=== PATIENT | female | born 1955 | race Caucasian/White ===

== ENCOUNTER 2020-12-31 19:04 | Emergency (ER) | payer OTHER ==
[2020-12-31] MEDS ORDERED: Ketorolac 30 MG/ML SDV IM ONE (19:19)
--- NOTE | 2020-12-31 19:24 | EDM.PDOC ---
ED HPI GENERAL MEDICAL PROBLEM - General Chief Complaint: Lower Extremity Injury/Pain Stated Complaint: DOG RAN INTO LEFT KNEE Time Seen by Provider: 12/31/20 19:10 Source of Information: Reports: Patient, RN, RN Notes Reviewed History Limitations: Reports: No Limitations - History of Present Illness INITIAL COMMENTS - FREE TEXT/NARRATIVE: Santo is a 65 y/o female who presents to the ED via personal vehicle with complaints of left knee pain. The patient reports her dog ran into her left lateral knee approximately 30 minutes ago, causing a buckling of the joint. The rates the pain 10/10 to her left medial, superior knee. She attest to decreased range of motion to the joint as well as the inability to bear weight on the left extremity due to pain. She denies history of injury to the left knee. She denies loss of sensory function to the left lower extremity. She has taken no medications or performed any supportive cares for her pain. 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: Musculoskeletal History: Reports: None, Fracture Neurological History: Reports: None Psychiatric History: Reports: None Other Endocrine/Metabolic History: Hx of elevated glucose Hematologic History: Reports: None Immunologic History: Reports: None Oncologic (Cancer) History: Reports: None Dermatologic History: Reports: None - Infectious Disease History Infectious Disease History: Reports: Chicken Pox, Measles, Mumps - Past Surgical History Head Surgeries/Procedures: Reports: None HEENT Surgical History: Reports: Adenoidectomy, Cataract Surgery, Tonsillectomy Other HEENT Surgeries/Procedures: Ear stapedectomy x3 Cardiovascular Surgical History: Reports: None GI Surgical History: Reports: None Female Surgical History: Reports: Breast Biopsy, D&C Other Musculoskeletal Surgeries/Procedures:: Bunionectomy [address] Dr. Quesada. elbow surg x3 Social & Family History - Caffeine Use Caffeine Use: Reports: Coffee Caffeine Use Comment: 5 cups daily Review of Systems - Review of Systems Review Of Systems: Comprehensive ROS is negative, except as noted in HPI. ED EXAM, GENERAL - Physical Exam Exam: See Below Exam Limited By: No Limitations General Appearance: Alert, No Apparent Distress, Thin Eye Exam: Bilateral Eye: EOMI, Normal Inspection Ears: Normal External Exam, Hearing Grossly Normal Throat/Mouth: Normal Inspection, Normal Oropharynx, Normal Voice, No Airway Compromise Neck: Normal Inspection, Full Range of Motion Respiratory/Chest: No Respiratory Distress, Lungs Clear, Normal Breath Sounds, No Accessory Muscle Use, Chest Non-Tender. No: Crackles, Rales, Rhonchi, Wheezing Cardiovascular: Normal Peripheral Pulses, Regular Rate, Rhythm, No Edema, No Gallop, No JVD, No Murmur, No Rub Peripheral Pulses: 2+: Radial (L), Radial (R) GI/Abdominal: Normal Bowel Sounds, Soft, Non-Tender Extremities: No Pedal Edema, Normal Capillary Refill, Joint Swelling (To left anterior, medial knee), Leg Pain (To left anterior, medial superior knee), Limited Range of Motion (To left knee), Redness (Mild erythema to left anterior knee). No: Increased Warmth, Mottled, Pallor Neurological: Alert, Oriented, CN II-XII Intact, Normal Cognition, Normal Gait, Normal Reflexes, No Motor/Sensory Deficits Psychiatric: Normal Affect, Normal Mood Skin Exam: Warm, Dry, Intact, No Rash, Erythema (Mild erythema to left anterior knee). No: Ecchymosis, Jaundice, Pallor, Petechiae, Rash Course - Vital Signs Last Recorded V/S: Last Vital Signs Temp 97.8 F 12/31/20 19:16 Pulse 85 12/31/20 21:36 Resp 16 12/31/20 21:36 BP 118/73 12/31/20 21:36 Pulse Ox 93 L 12/31/20 21:36 - Orders/Labs/Meds Orders: Active Orders 24 hr Category Date Time Status DME for Discharge [COMM] Stat Oth 12/31/20 21:10 Ordered Meds: Medications Discontinued Medications Generic Name Dose Route Start Last Admin Trade Name Freq PRN Reason Stop Dose Admin Hydromorphone HCl 1 mg 12/31/20 20:25 12/31/20 20:31 Hydromorphone 1 Mg/Ml Syringe IM 12/31/20 20:26 1 mg ONETIME ONE Administration Ketorolac Tromethamine 30 mg 12/31/20 19:19 12/31/20 19:33 Ketorolac 30 Mg/Ml Sdv IM 12/31/20 19:20 30 mg ONETIME ONE Administration - Radiology Interpretation Free Text/Narrative:: [facility] [place] [facility] Final Radiology Report Call: [phone] assistance Online chat: [email or web address] Name: SANTO LIVINGSTON Age: 65Years F Date: 12/31/2020 SSN: -- : 1955 Study: CR KNEE 3V LT Requesting Physician: Demi Jain Images: 5 Addl Studies: Provided Clinical History: Medial superior swelling Contrast: Contrast Medium: Contrast Amount: Contrast Method: CONFIDENTIALITY STATEMENT This report is intended only for use by the referring physician, and only in accordance with law. If you received this in error, call [phone]. Page 1 of 1 PROCEDURE INFORMATION: Exam: XR Left Knee Exam date and time: 12/31/2020 7:40 PM Age: 65 years old Clinical indication: Other: Dog ran into lateral knee causing it to buckle; Additional info: Medial superior swelling TECHNIQUE: Imaging protocol: XR Left knee. Views: 3 views. COMPARISON: MR Foot wo Cont Lt 09/28/2019 10:54 AM FINDINGS: Bones/joints: No acute fracture or dislocation. Popcorn intramedullary lesion in the distal femoral diaphysis consistent with an enchondroma. No suspicious lytic or osteosclerotic lesions. Soft tissues: Normal. IMPRESSION: No acute fracture or dislocation. Thank you for allowing us to participate in the care of your patient. Dictated and Authenticated by: Rafael Brand MD 12/31/2020 9:29 PM Central Time ([place] & [place]) - Re-Assessments/Exams Free Text/Narrative Re-Assessment/Exam: 12/31/20 Xray of left knee obtained. Findings of examination and imaging reviewed with patient. Will treat acute knee pain with a brace and Ultram. Supportive cares for acute knee pain as well as follow up with PCP for more in-depth imaging discussed. Red flag signs and symptoms which would warrant reevaluation reviewed. Patient verbalized understanding and agreement with the plan of care. Departure - Departure Time of Disposition: 21:11 Disposition: Home, Self-Care 01 Condition: Fair Clinical Impression: Left medial knee pain Strain of knee and leg, left Qualifiers: Encounter type: initial encounter Qualified Code(s): S86.912A - Strain of unsp ecified muscle(s) and tendon(s) at lower leg level, left leg, initial encounter - Discharge Information *PRESCRIPTION DRUG MONITORING PROGRAM REVIEWED*: Not Applicable *COPY OF PRESCRIPTION DRUG MONITORING REPORT IN PATIENT JASON: Not Applicable Instructions: Acute Knee Pain, Adult, Knee Sprain, Adult Forms: ED Department Discharge Additional Instructions: Rx: Ultram 1.) Follow up with your provider in 2-3 days regarding today's visit as you injury may warrant an MRI. 2.) Elevated the left leg while at rest. 3.) You may apply ice to the left knee as pain persists; 20 minutes, every hour. 4.) You may take ibuprofen (Motrin/Advil) 400mg every six hours, as pain and swelling persist. You may also take acetaminophen (Tylenol) 650mg every six hours, as pain persists. You may stagger these medications so you are taking a dose every three hours. 5.) Return to the emergency department with any persistent or worsening symptoms despite medication and supportive cares. Sepsis Event Note (ED) - Focused Exam Vital Signs: Vital Signs Temp Pulse Resp BP Pulse Ox 12/31/20 21:36 85 16 118/73 93 L 12/31/20 19:16 97.8 F 74 16 114/64 96 - My Orders Last 24 Hours: My Active Orders 12/31/20 21:10 DME for Discharge [COMM] Stat - Assessment/Plan Last 24 Hours: My Active Orders 12/31/20 21:10 DME for Discharge [COMM] Stat
[2020-12-31] MEDS ORDERED: HYDROmorphone 1 MG/ML Syringe IM ONE (20:25)
--- NOTE | 2020-12-31 21:30 | CR ---
PROCEDURE INFORMATION: Exam: XR Left Knee Exam date and time: 12/31/2020 7:40 PM Age: 65 years old Clinical indication: Other: Dog ran into lateral knee causing it to buckle; Additional info: Medial superior swelling TECHNIQUE: Imaging protocol: XR Left knee. Views: 3 views. COMPARISON: MR Foot wo Cont Lt 09/28/2019 10:54 AM FINDINGS: Bones/joints: No acute fracture or dislocation. Popcorn intramedullary lesion in the distal femoral diaphysis consistent with an enchondroma. No suspicious lytic or osteosclerotic lesions. Soft tissues: Normal. IMPRESSION: No acute fracture or dislocation.
[2020-12-31 21:37] VITALS: BP 118/73; PULSE 85
== END 2020-12-31 21:37 | disposition home or self-care (01) ==
LOC: DL.ED 19:04
DX: S86.912A Strain of unspecified muscle(s) and tendon(s) at lower leg level, left leg, initial encounter (principal); W54.1XXA Struck by dog, initial encounter
CPT/HCPCS: 73562; 96372; 99283; J1170; J1885